=== PATIENT | female | born 1950 | race Caucasian/White ===

== ENCOUNTER → 2017-03-12 | Emergency (ER) | payer OTHER ==
[~2017-03-12] VITALS: Ht 160 cm; Wt 79.4 kg
[~2017-03-12] MED LIST: ASA325 M1 PO; CEFADROXIL500 MG PO; CLONAZEPAM1 MG PO; DOCUSATE SODIU100 MG PO; PERCOCET 5-3251 EACH PO; PERCOCET 5/3251 TAB PO
== END | disposition home or self-care (01) ==
LOC: ER 20:19
DX: S82.092A Other fracture of left patella, initial encounter for closed fracture (principal); S93.401A Sprain of unspecified ligament of right ankle, initial encounter; W01.0XXA Fall on same level from slipping, tripping and stumbling without subsequent striking against object, initial encounter; Y93.01 Activity, walking, marching and hiking; Y92.018 Other place in single-family (private) house as the place of occurrence of the external cause; Y99.8 Other external cause status

== ENCOUNTER → 2017-05-06 | Emergency (ER) | payer OTHER ==
[~2017-05-06] VITALS: Ht 165.1 cm; Wt 72.1 kg
[~2017-05-06] MED LIST changes: +NEURONTIN800 MG; +OMEPRAZOLE10 MG; +ONGLYZA2.5 MG; +XARELTO15 MG PO; +XARELTO20 MG PO
== END | disposition home or self-care (01) ==
LOC: ER 18:02
DX: I82.492 Acute embolism and thrombosis of other specified deep vein of left lower extremity (principal); F17.210 Nicotine dependence, cigarettes, uncomplicated

== ENCOUNTER 2017-06-05 13:06 | Emergency (ER) | payer OTHER ==
[~2017-06-05] VITALS: Ht 165.1 cm; Wt 68.0 kg
== END 2017-06-05 20:57 | disposition home or self-care (01) ==
LOC: ER 13:06
DX: K64.8 Other hemorrhoids (principal)

== ENCOUNTER 2022-09-29 23:10 | Emergency (ER) | payer OTHER ==
[~2022-09-29] VITALS: Ht 162.6 cm; Wt 63.5 kg
[2022-09-29] MEDS ORDERED: LYRICA50 MG (23:31)
== END 2022-09-30 03:37 | disposition home or self-care (01) ==
LOC: ER 23:10
DX: U07.1 COVID-19 (principal); R50.9 Fever, unspecified; M54.50 Low back pain, unspecified; E11.9 Type 2 diabetes mellitus without complications